=== PATIENT | male | born 1950 | race Caucasian/White ===

== ENCOUNTER 2019-06-30 10:25 | Emergency (ER) | payer OTHER, SELFPAY ==
[2019-06-30 10:26] VITALS: BP 135/106; PULSE 72
[2019-06-30 10:28] VITALS: BP 195/108; PULSE 72; RESP 16; TEMP 36.8; O2SAT 96; BMI 25.9
--- NOTE | 2019-06-30 10:45 | EKG12_ITS ---
Test Reason : Blood Pressure : / mmHG Vent. Rate : 066 BPM Atrial Rate : 066 BPM P-R Int : 132 ms QRS Dur : 082 ms QT Int : 420 ms P-R-T Axes : 036 -30 015 degrees QTc Int : 440 ms Normal sinus rhythm Left axis deviation Moderate voltage criteria for LVH, may be normal variant Abnormal ECG Confirmed by REJI SÁNCHEZ, AYESHA ([id number]), assistant editor ZEENAT MARIN ([id number]) on 07/01/2019 2:24:42 PM Referred By: Edwar Cornelius Confirmed By:AYESHA MENDOZA MD
--- NOTE | 2019-06-30 10:46 | ED.DCSUM_ITS ---
History of Present Illness Chief Complaint: Complaint Informant: Patient, - - Dr. Alvarez Onset: Month(s) Narrative: Patient presents with Dr. Alvarez's office for laboratory evaluation and further work-up. Patient was referred to Dr. Alvarez from an outside office with urinary retention and renal failure. Patient brought along lab work that had been obtained on May 17. At that time it revealed a creatinine of 8.39 and a BUN of 100. CEA is elevated at 11.3 and PSA is elevated at 12.5. He had a CT scan done at that time that reveals gross distention of the pelvicalyceal system and ureter bilaterally. There is very little renal cortical tissue bilaterally. The prostate is enlarged and impresses on the base of the bladder. In the office today a Oates catheter was placed and 2 L of urine were immediately drained. Past Medical History - Allergies and Home Meds Allergies/Adverse Reactions: Allergies sulfamethoxazole [From Bactrim] Allergy (Verified 06/30/19 10:38) Other abd pain and dizziness trimethoprim [From Bactrim] Allergy (Verified 06/30/19 10:38) Other abd pain and dizziness Primary Care Physician: Edwar Cornelius MD [Primary Care Provider] - Past Medical History: None Review of Systems General: Denies: Chills, Fever Eyes: Denies: Visual changes - bilaterally ENT: Denies: Bilateral ear pain Cardiovascular: Denies: Chest pain Respiratory: Denies: Dyspnea Gastrointestinal: Reports: Abdominal pain. Denies: Nausea, Vomiting, Diarrhea Musculoskeletal: Reports: Back pain Neurological: Denies: Headache, Weakness Hematologic: Denies: Easy bruising, Easy bleeding Allergy: Denies: Uticaria Physical Exam Vital Signs/Narrative: Vital Signs Temp Pulse Resp BP Pulse Ox 06/30/19 10:28 98.2 F 72 16 195/108 H 96 06/30/19 10:26 72 135/106 H Inital Vital Signs reviewed: Yes General: Well nourished, Well developed Head: Normocephalic ENT: Moist mucous membranes Neck: Supple Cardiovascular: Regular rate, Regular rhythm Respiratory: No distress, CTA bilaterally Abdomen: Soft, Nontender, Hypoactive bowel sounds Back: Negative for: CVA tenderness Skin: Normal color Neurological: Alert, Oriented x3 Psychological: Normal affect Diagnostic/Tx/Re-eval Laboratory Results 06/30/19 06/30/1920 10:55 10:55 11:26 WBC 5.3 RBC 3.96 L Hgb 11.1 L Hct 34.9 L MCV 88.1 MCH 28.0 MCHC 31.8 L RDW Std Deviation 42.9 RDW Coeff of Francesco 13.2 Plt Count 199 MPV 9.3 Immature Gran % (Auto) 0.400 Neut % (Auto) 64.1 Lymph % (Auto) 18.8 L [place] % (Auto) 9.7 Eos % (Auto) 6.4 H Baso % (Auto) 0.6 Absolute Neuts (auto) 3.4 Absolute Lymphs (auto) 0.99 Nucleated RBC % 0 Sodium 141 Potassium 3.6 Chloride 111 H Carbon Dioxide 21.0 Anion Gap 9 BUN 95 H Creatinine 9.23 H* Estim Creat Clear Calc 6.39 Est GFR (MDRD) Af Amer 7 L Est GFR (MDRD) Non-Af 6 L BUN/Creatinine Ratio 10.3 Glucose 87 Calcium 8.5 Urine Color Yellow Urine Clarity Cloudy Urine pH 6.5 Ur Specific [place] 1.010 Urine Protein 100 H Urine Glucose (UA) 50 H Urine Ketones Negative Urine Occult Blood 250 H Urine Nitrite Negative Urine Bilirubin Negative Urine Urobilinogen Normal Ur Leukocyte Esterase Negative Urine RBC 10-25 SEEN Urine WBC 0 SEEN Ur Squamous Epith Cells 0-5 SEEN Urine Bacteria 0 SEEN Urine Mucus 0 SEEN - EKG Initial EKG Interpretation: Sinus Rhythm - Sinus at 66 with no acute ischemia. - Medical Decision Making Test results are reviewed with Dr. Alona Read from nephrology. She states that as long as the patient does not have uremic symptoms currently he can be followed up as an outpatient. I will write an outpatient lab order for patient to have repeat labs drawn next Thursday. These are to be sent both to Dr. Read as well as Dr. Alvarez. Patient is to call Dr. Read's office for follow-up. Patient and family at bedside are in agreement. They were given return instructions. ED Disposition - Plan for ED Patient: Disposition: Home or Assisted Living Diagnosis: Renal failure Instructions: Chronic Renal Failure Referrals: Alona Read DO [STAFF PHYSICIAN] - As soon as possible Asher Alvarez MD [STAFF PHYSICIAN] -
--- NOTE | 2019-06-30 10:49 | NURSING ---
NO OLD EKG
[2019-06-30 10:59] LABS: Absolute Lymphocyte Count 0.99 X10^3/uL (0.83-4.51); Absolute Neutrophil Count 3.4 X10^3/uL (2.0-7.7); Basophil# 0.03 X10^3/uL; Basophil% 0.6 % (0-1); Eosinophil# 0.34 X10^3/uL; Eosinophils% 6.4 % (0-5); Hematocrit 34.9 % (40-54); Hemoglobin 11.1 g/dL (13.0-16.5); Lymphocyte # 0.99 X10^3/ul (4.0); Lymphocyte % 18.8 % (19-41); Mean Corp Hgb Conc 31.8 g/dL (32-36); Mean Corpuscular Volume 88.1 fL (80-94); Mean Platelet Vol. 9.3 fl (6.2-12.0); Monocyte# 0.51 X10^3/uL; Monocyte% 9.7 % (0-10); NRBC Flagged by Analyzer 0 % (0-5); Neutrophil # 3.39 X10^3/uL (2.7-7.7); Neutrophil % 64.1 % (47-70); Platelet Count 199 K/mm3 (150-450); RBC Distribution Width CV 13.2 % (11.6-14.6); RBC Distribution Width SD 42.9 fl (35.1-43.9); Red Blood Count 3.96 M/mm3 (4.6-6.2); White Blood Count 5.3 K/mm3 (4.4-11.0)
[2019-06-30 11:19] LABS: Anion Gap 9 (5-15); BUN 95 mg/dL (7-18); BUN/Creat Ratio 10.3 RATIO (10-20); Calcium,Total 8.5 mg/dL (8.5-10.1); Chloride 111 mmol/L (98-107); Creatinine, Serum 9.23 mg/dL (0.70-1.30); EST Glomerular Filtration Rate 6 mL/min (>60); Est Glom Filt Rate - Afr Amer 7 mL/min (>60); Estimated Creatinine Clearance 6.39 ml/min; Glucose 87 mg/dL (74-106); Potassium 3.6 mmol/L (3.5-5.1); Sodium Level 141 mmol/L (136-145)
[2019-06-30 11:30] LABS: Bacteria 0 SEEN /hpf (None Seen); Mucous, Urine 0 SEEN /hpf (<or=2+); White Blood Cells 0 SEEN /hpf (0-5)
[2019-06-30 11:34] VITALS: BP 195/103; PULSE 69; RESP 17; TEMP 36.8; O2SAT 97
[2019-06-30 11:50] LABS: Color, Urine Yellow (Yellow); Glucose, Dipstick 50 mg/dl (Normal); Ketone-Dipstick Negative (Negative); Leukocyte Esterase-Dipstick Negative /ul (Negative); Nitrite-Dipstick Negative (Negative); Occult Blood-Urine 250 /ul (Negative); Protein-Dipstick 100 mg/dl (Negative); Urine Bilirubin Dipstick Negative (Negative); Urine Clarity Cloudy (Clear); Urine Urobilinogen Normal (Normal); Urine pH 6.5 (5.0 - 8.0)
[2019-06-30 11:58] LABS: Red Blood Cells-Urine 10-25 SEEN /hpf (0-5); Squamous Epithelial Cells - UA 0-5 SEEN /hpf (0-5)
[2019-06-30 12:54] VITALS: BP 195/98; PULSE 68; RESP 17; O2SAT 97
== END 2019-06-30 12:57 | disposition home or self-care (01) ==
PROVIDERS: Emergency Provider Emergency Medicine; PCP Family Medicine; Referring Provider Family Medicine
DX: N19 Unspecified kidney failure (principal)
CPT/HCPCS: 80048; 81001; 85025; 93005; 99285; A4216

== ENCOUNTER → 2019-07-26 15:53 | Outpatient (CLI) | payer OTHER, SELFPAY ==
[2019-06-30 10:28] VITALS: BMI 25.9
== END ==
PROVIDERS: PCP Family Medicine; Referring Provider Urology; Visit Provider Urology
DX: N39.0 Urinary tract infection, site not specified (principal)
CPT/HCPCS: 87086; 87088

== ENCOUNTER → 2019-08-15 08:39 | Outpatient (CLI) | payer OTHER, SELFPAY ==
--- NOTE | 2019-08-15 08:43 | VDUE_ITS ---
Reason For Study: CKD Stage 5 Right Arm Left Arm Right Cephalic Vein at the wrist measures Left Cephalic Vein at the wrist measures 0.32 x 0.33 cm. 0.25 x 0.24 cm. Right Cephalic Vein in the forearm measures Left Cephalic Vein in the forearm measures 0.31 x 0.33 cm. 0.33 x 0.32 cm. Right Cephalic Vein below antecub measures Left Cephalic Vein below antecub measures 0.35 x 0.35 cm. 0.30 x 0.34 cm. Right Cephalic Vein above antecub measures Left Cephalic Vein above antecub measures 0.31 x 0.33 cm. 0.40 x 0.40 cm. Right Cephalic Vein mid bicep measures 0.33 Left Cephalic Vein at mid bicep measures x 0.33 cm. 0.36 x 0.40 cm. Right Cephalic Vein at the shoulder measures Left Cephalic Vein at the shoulder measures 0.31 x 0.34 cm. 0.45 x 0045 cm. Right Basilic Vein at the origin measures Basilic vein at origin measures 0.33 x 0.34 0.56 x 0.55 cm. cm. Right Basilic Vein mid bicep measures 0.53 x Basilic vein at bicep measures 0.35 x 0.36 0.53 cm. cm. Right Basilic Vein above antecub measures Basilic vein above antecub measures 0.25 x 0.51 x 0.53 cm. 0.23 cm. Right Brachial artery measures 0.54 x 0.56 Left Brachial artery measures 0.53 x 0.55 cm cm with a velocity of 65.6 cm/sec. with a velocity of 86.4 cm/sec. Rigth Radial artery measures 0.23 x 0.24 cm Left Radial artery measures 0.27 x 0.27 cm with a velocity of 76 cm/sec. with a velocity of 60.4 cm/sec. Interpretation Summary Patent and compressible bilateral upper extremity cephalic and basilic veins with dimensions as noted. Adequate bilateral radial and brachial artery diameter and flow. Ordering Physician: Alona Read Referring Physician: Edwar Cornelius Performed By: Ying East RVT ?
[2019-08-15 09:31] LABS: Albumin, Serum 3.2 g/dL (3.2-5.0); BUN 58 mg/dL (7-18); BUN/Creat Ratio 10.2 RATIO (10-20); Calcium,Total 8.4 mg/dL (8.5-10.1); Chloride 106 mmol/L (98-107); Creatinine, Serum 5.67 mg/dL (0.70-1.30); EST Glomerular Filtration Rate 11 mL/min (>60); Est Glom Filt Rate - Afr Amer 13 mL/min (>60); Glucose 88 mg/dL (74-106); Sodium Level 140 mmol/L (136-145)
== END ==
PROVIDERS: PCP Family Medicine; Referring Provider Internal Medicine Nephrology; Visit Provider Internal Medicine Nephrology
DX: Z01.818 Encounter for other preprocedural examination (principal); N18.5 Chronic kidney disease, stage 5; N13.8 Other obstructive and reflux uropathy; N25.81 Secondary hyperparathyroidism of renal origin; E55.9 Vitamin D deficiency, unspecified
CPT/HCPCS: 36415; 80069; 93970

== ENCOUNTER → 2022-12-18 | Outpatient (CLI) | payer OTHER, SELFPAY ==
--- NOTE | 2022-12-18 14:01 | VDUE_ITS ---
Reason For Study: Pre-Op Fistula Creation Right Arm Left Arm Right cephalic vein is compressible. Left cephalic vein is compressible. Right Cephalic Vein at the wrist measures Left Cephalic Vein at the wrist measures 0.33 0.32 x 0.35 cm. x 0.36 cm. Right Cephalic Vein in the forearm measures Left Cephalic Vein in the forearm measures 0.30 x 0.34 cm. 0.28 x 0.30 cm. Right Cephalic Vein below antecub measures Left Cephalic Vein below antecub measures 0.36 x 0.32 cm. 0.29 x 0.34 cm. Right Cephalic Vein above antecub measures Left Cephalic Vein above antecub measures 0.43 x 0.46 cm. 0.43 x 0.49 cm. Right Cephalic Vein mid bicep measures 0.34 x Left Cephalic Vein at mid bicep measures 0.37 0.35 cm. x 0.36 cm. Right Cephalic Vein at the shoulder measures Left Cephalic Vein at the shoulder measures 0.33 x 0.35 cm. 0.47 x 0.47 cm. Right basilic vein is compressible. Left basilic vein is compressible. Right Basilic Vein at the origin measures Basilic vein above antecub measures 0.32 x 0.45 x 0.49 cm. 0.33 cm. Right Basilic Vein mid bicep measures 0.46 x Basilic vein at bicep measures 0.35 x 0.35 0.50 cm. cm. Right Basilic Vein above antecub measures Basilic vein at origin measures 0.53 x 0.56 0.36 x 0.40 cm. cm. Right Brachial artery measures 0.59 x 0.58 cm Left Brachial artery measures 0.58 x 0.62 cm with a velocity of 68.9 cm/sec. with a velocity of 104.3 cm/sec. Rigth Radial artery measures 0.21 x 0.22 cm Left Radial artery measures 0.26 x 0.28 cm with a velocity of 64.1/6.5 cm/sec. with a velocity of 81.0 cm/sec. VL/Dialysis Vein Map PRE-OP BILAT Interpretation Summary Patent and compressible bilateral upper extremity cephalic and basilic veins wi th dimensions as noted Normal bilateral brachial artery and radial artery diameter and flow Ordering Physician: Black Boudreaux Referring Physician: Edwar Cornelius Performed By: Kyle Mayen RVT ???
== END | disposition home or self-care (01) ==
LOC: CVS 13:59
PROVIDERS: PCP Family Medicine; Referring Provider Surgery; Visit Provider Surgery
DX: Z01.818 Encounter for other preprocedural examination (principal); N18.9 Chronic kidney disease, unspecified
CPT/HCPCS: 93985

== ENCOUNTER 2023-01-20 08:50 | Day surgery (SDC) | payer SELFPAY, OTHER ==
--- NOTE | 2023-01-15 08:59 | EKG12_ITS ---
Test Reason : PRE OP Blood Pressure : / mmHG Vent. Rate : 075 BPM Atrial Rate : 075 BPM P-R Int : 130 ms QRS Dur : 074 ms QT Int : 376 ms P-R-T Axes : 054 009 047 degrees QTc Int : 419 ms Normal sinus rhythm Normal ECG Confirmed by JUANITA SÁNCHEZ, CARLOTA ([id number]), film editor RASHI DESAI ([id number]) on 01/19/2023 8:31:13 AM Referred By: Black Boudreaux Confirmed By:KRYSTIAN GRANT MD
[2023-01-20] VITALS (19 sets, daily range): BP systolic 116–181; BP diastolic 69–98; PULSE 50–75; RESP 12–18; TEMP 36–36.6; O2SAT 92–100; BMI 26.4
--- NOTE | 2023-01-20 09:22 | PCM.HP.BLA ---
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 Is patient in pain?: No Allergies sulfamethoxazole [From Bactrim] Allergy (Verified 12/25/22 15:03) Othertrimethoprim [From Bactrim] Allergy (Verified 12/25/22 15:03) Other Medications multivitamin,zs-marl-wmskjuoi 27 mg-0.4 mg tablet 1 tab PO DAILY 06/30/19 [History Confirmed 12/25/22] vit B apeqmpd-Z-KB-iron sulf-vit E 500 mg-400 mcg-27 mg iron tablet 1 ea PO DAILY 06/30/19 [History Confirmed 12/25/22] PFSH Medical History (Updated 12/25/22 @ 15:01 by Sangeeta Conway) BPH (benign prostatic hyperplasia) Surgical History (Updated 12/25/22 @ 15:01 by Sangeeta Conway) History of insertion of tunneled central venous catheter (CVC) with port Social History Smoking Status: Never smoker HPI HPI HPI: 72-year-old gentleman is referred by Dr Michelle Sosa for surgical consultation regarding creation of an arteriovenous analysis fistula and a written copy of my surgical consult recommendations will return to him. We initially tried to make contact with this gentleman October 06, 2022 but unfortunately multiple times were unable to obtain a return phone call. It is of note that dating all the way back to August 15, 2019 he had bilateral upper extremity vein mapping for an intended AV fistula. More recently on December 18, 2022 he had bilateral extremity vein mapping. This suggest that bilateral upper extremity cephalic veins throughout their course appear to be of adequate diameter. The patient presents today. He has right internal jugular tunneled dialysis catheter site has been placed. By report apparently 2019 he had suggested that he would never be placed on hemodialysis.Apparently more recently as his kidneys continued to fail he then realized that he required hemodialysis but unfortunately then had tunnel catheters placed. He is aware that we were trying to avoid the catheters being placed by addressing this precrisis level The patient is right arm dominant. December 18, 2022 Reason For Study: Pre-Op Fistula Creation Right Arm Left Arm Right cephalic vein is compressible. Left cephalic vein is compressible. Right Cephalic Vein at the wrist measures Left Cephalic Vein at the wrist measures 0.33 0.32 x 0.35 cm. x 0.36 cm. Right Cephalic Vein in the forearm measures Left Cephalic Vein in the forearm measures 0.30 x 0.34 cm. 0.28 x 0.30 cm. Right Cephalic Vein below antecub measures Left Cephalic Vein below antecub measures 0.36 x 0.32 cm. 0.29 x 0.34 cm. Right Cephalic Vein above antecub measures Left Cephalic Vein above antecub measures 0.43 x 0.46 cm. 0.43 x 0.49 cm. Right Cephalic Vein mid bicep measures 0.34 x Left Cephalic Vein at mid bicep measures 0.37 0.35 cm. x 0.36 cm. Right Cephalic Vein at the shoulder measures Left Cephalic Vein at the shoulder measures 0.33 x 0.35 cm. 0.47 x 0.47 cm. Right basilic vein is compressible. Left basilic vein is compressible. Right Basilic Vein at the origin measures Basilic vein above antecub measures 0.32 x 0.45 x 0.49 cm. 0.33 cm. Right Basilic Vein mid bicep measures 0.46 x Basilic vein at bicep measures 0.35 x 0.35 0.50 cm. cm. Right Basilic Vein above antecub measures Basilic vein at origin measures 0.53 x 0.56 0.36 x 0.40 cm. cm. Right Brachial artery measures 0.59 x 0.58 cm Left Brachial artery measures 0.58 x 0.62 cm with a velocity of 68.9 cm/sec. with a velocity of 104.3 cm/sec. Rigth Radial artery measures 0.21 x 0.22 cm Left Radial artery measures 0.26 x 0.28 cm with a velocity of 64.1/6.5 cm/sec. with a velocity of 81.0 cm/sec. VL/Dialysis Vein Map PRE-OP BILAT Interpretation Summary Patent and compressible bilateral upper extremity cephalic and basilic veins with dimensions as noted Normal bilateral brachial artery and radial artery diameter and flow Ordering Physician: Black Boudreaux Referring Physician: Edwar Cornelius Performed By: Kyle Mayen RVT General General: No weight change, appetite, fatigue, colon cancer, breast cancer or weakness HEENT HEENT: No difficulty swallowing, eye injury, eye surgery, swollen glands or hoarseness Endo Endocrine: Yes thyroid disease; No diabetes mellitus, thyroid cancer, Hair loss, heat intolerance or cold intolerance Musc Musculoskeletal: Yes arthritis; No back problems, rheumatoid arthritis, gout or joint pain Cardio Cardiovascular: No murmur, pacemaker, heart disease, atrial fibrillation, high blood pressure, heart attack, heart stent, palpitations, shortness of breat with exertion or chest pain Psych Psychiatric: No depression, anxiety or hearing voices Resp Respiratory: No shortness of breath, No sleep apnea, No cough, No COPD, No asthma, No emphysema and No wheezing Gastro Gastrointestinal: No abdominal pain, No nausea or vomiting, No diarrhea, No constipation, No blood in stool, No acid reflux, No hemorrhoids, No ulcers, No gallbladder problem and No black,tarry stools Robert Hematologic: No blood thinners, No blood disorders, No bleeding, No anemia and No blood clots Neuro Neurologic: No weakness Exam Const General: cooperative, healthy appearing, comfortable and no acute distress [facility] Head: normal to inspection Eyes General: appearance normal, both eyes and all related structures Neck Neck: normal visual inspection Chest Other: Right IJ tunneled dialysis catheter is in place Resp Effort & Inspection: normal respiratory effort Auscultation: clear to auscultation bilaterally Cardio Palpation: normal PMI Rate: regular rate GI Other: Soft, nontender Musc Cervical Spine: normal cervical lordosis Skin Other: Scattered areas of ecchymosis bilateral upper extremities Neuro General: patient alert, patient awake and patient oriented x3 Extrem Other: 3+ left radial and brachial pulses. The left forearm and upper arm cephalic vein are visible. I performed ultrasound inspection and find that the cephalic vein does indeed appear to be nicely patent throughout Psych Appearance: grossly normal Assessment and Plan Assessment and Plan (1) Chronic kidney disease: Status: Chronic Plan: The patient is right arm dominant. He already has started hemodialysis. He is aware that it would take at least 8 weeks of maturation to get a fistula usable. I propose for him a left forearm radiocephalic arteriovenous fistula. I have discussed the technique, benefit, risk, alternatives. No guarantees of success have been offered. He has had an opportunity to ask and have questions answered. We will schedule and proceed at his discretion. I appreciate the opportunity of assisting with surgical care. Copy: Dr. Edwar Cornelius and Dr Michelle Boudreaux M.D., F.A.C.S. We have been contacted from the patient's dialysis center notifying us that his current tunneled right IJ dialysis catheters are malfunctioning and they are requesting that those catheters be removed and that new ones to be placed at the same time of his planned fistula surgery. I discussed with the patient this additional surgical recommendation. He has had an opportunity to ask and have questions answered. We will add this to her surgical plans. Anticipate removal of the right internal jugular tunneled dialysis catheters and possible placement either in the left or the right internal jugular. Black Boudreaux M.D., F.A.C.S.
--- NOTE | 2023-01-20 09:24 | DCINST_ITS ---
Discharge Instructions Diet Discharge Diet: Renal Diet Activity Discharge Activity: May Not Drive (for 2-3 days or while taking narcotic pain medications.), May Shower and May Take a Tub Bath (in 5 days.) Lifting Restrictions: 5 pounds Keep extremity elevated above heart level: - (Keep arm elevated above the heart level for 3 days.) Dressing / Incision Call your doctor if your incision/area has: Continuous Slow Oozing, Sudden Increased Bleeding (apply pressure and call your doctor.), Increased Pain/ Swelling, Increased Redness and Foul Smelling Discharge Call your doctor if you observe: Fever of 101 or Higher Suture Line Care: Avoid Pulling/Pushing and Avoid Pinching/Bending Cleanse incision/area with: Keep Dressing Clean & Dry Additional Dressing/Incision Instructions:: Change or remove dressing in one day. May protect with a gauze bandaid. Follow Up Care Please Follow Up With: Black Boudreaux MD When: Call [phone] to make an appointment for suture removal and follow up in 1 week. Test Results: Test results from this visit will be discussed in further detail at your follow- up appointment, if applicable. Discharge Plan Admission Attending Provider: Black Boudreaux Primary Care Provider: Cecy Pruitt Discharge Orders/Prescriptions Prescriptions: No Action multivitamin,bh-xybw-fbsmdtda 1 TABLET tablet 1 tab PO DAILY vit B vkgw-Y-VX-iron sulf-Alexa 1 EACH tablet 1 ea PO DAILY Other Ambulatory Orders: 12 Lead EKG (Routine) Timeframe: 20230115 Location: None Selected Ordered By: Dr. Black Boudreaux Referrals / Follow Up: Edwar Cornelius MD [Non-Staff] - Disposition Disposition (needs filled in before D/C Order can be placed): Home, Self Care
[2023-01-20 09:41] LABS: Hematocrit 35.1 % (40-54); Mean Corp Hgb Conc 31.3 g/dL (32-36); Mean Corpuscular Hgb 29.3 pg (27.0-32.0); Mean Corpuscular Volume 93.4 fL (80-94); Mean Platelet Vol. 9.5 fl (6.2-12.0); Platelet Count 161 K/mm3 (150-450); RBC Distribution Width CV 14.2 % (11.6-14.6); RBC Distribution Width SD 48.2 fl (35.1-43.9); Red Blood Count 3.76 M/mm3 (4.6-6.2); White Blood Count 6.4 K/mm3 (4.4-11.0)
[2023-01-20 10:14] LABS: Anion Gap 11 (5-15); BUN 76 mg/dL (7-18); BUN/Creat Ratio 7.8 RATIO (10-20); Calcium,Total 8.1 mg/dL (8.5-10.1); Chloride 113 mmol/L (98-107); Creatinine, Serum 9.79 mg/dL (0.70-1.30); EST Glomerular Filtration Rate 6 mL/min (>60); Est Glom Filt Rate - Afr Amer 7 mL/min (>60); Estimated Creatinine Clearance 5.54 ml/min; Glucose 75 mg/dL (74-106); Potassium 4.6 mmol/L (3.5-5.1); Sodium Level 142 mmol/L (136-145)
[2023-01-20] MEDS: Heparin Injection (Vial) 5,000 UNIT/ML VIAL 5000 UNIT (10:42)
[2023-01-20] MEDS: Heparin 10,000 UNITS/10 ML Vial 10000 UNITS (10:42)
[2023-01-20] MEDS: Lidocaine 1% (20 ml mdv) 20 ML Vial (10:42)
[2023-01-20] MEDS: Bupivacaine Mpf 0.5% 30 ML VIAL (10:42)
--- NOTE | 2023-01-20 12:06 | OP.PCM_ITS ---
Report of Operation Date of Procedure: 01/20/23 Pre-Operative Diagnosis: Problem with right internal jugular tunneled dialysis catheters with thrombosis. Need for new arteriovenous hemodialysis access in the form of that a fistula Post-Operative Diagnosis: Same Surgery/Procedure Performed:: Left forearm radiocephalic arteriovenous hemodialysis fistula creation Left internal jugular tunneled 23 cm precurved palindrome catheters: Reference [id number], lot [id number], Removal right internal jugular tunneled dialysis catheters Description of Surgical Findings:: Timeout and informed consent was obtained. 72-year-old gentleman was taken to the operating placed on the table underwent monitored anesthesia care. The left extremity sterilely prepped and draped. Ultrasound was used to map the course of the left forearm cephalic vein and approximately third of the way from the wrist at a branch point I selected to create the fistula. 1% lidocaine mixed 50-50 with 0.5% Marcaine was used as a local anesthetic. Throughout the entire operation a total of 26 cc was used. Local was instilled an oblique incision was created sharp blunt dissection was used to identify the cephalic vein it was identified at a branch point. Then sharp and blunt dissection used to identify the radial artery which was quite supple and could be mobilized for distance. Side branches were secured with hemoclips. After adequate circulation time of 7000 units of heparin the vein was secured distally with 2 hemoclips. This was at a branch point I spatulated that and then I placed peripheral vascular clamps on the radial artery and 11 blade was used to make an arteriotomy which was extended with York scissors. The end of side venous to return anastomosis created with a running 7-0 Prolene. The branch point allowed for very generous anastomosis. Nice positional lie was achieved. There was excellent flow initially in the fistula. Hemostasis was intact. That wound was closed with a deep layer of interrupted 3-0 Vicryl and then a running subicular 4 Monocryl. Steri-Strips Telfa tape dressings applied. Attention was drawn to the left neck which was sterilely prepped and draped. At this point the patient received 2 g of Ancef intravenously. Under ultrasound guidance 1% lidocaine mixed 50-50 50-50 with 0.5% Marcaine was instilled as local anesthetic. Then a micropuncture needle was inserted micropuncture wire inserted I exchanged out with a sheath dilator for an 035 J-wire. Local instilled down upon the left chest wall a 23 cm precurved palindrome catheter was tunneled from the chest to the neck serial dilatation was performed and the sheath dilator was inserted the catheter was advanced through the sheath the sheath was split the catheter was positioned at the SVC atrial junction it aspirated easily it was flushed with 2 cc heparinized saline for channel. The neck site was closed interrupted 5-0 Vicryl subdermal stitch Steri-Strip Telfa OpSite dressing. The catheter was secured to the neck with interrupted 3-0 n ylon. Finally attention was drawn to the catheters of the right chest. Local was instilled and incision was made at the catheter exit site the cath was identified it was dissected free the catheter was removed and direct pressure was held for hemostasis. Sterile dry dressings applied. The patient was taken to the recovery room in satisfied condition without apparent complication. Stat portable chest x-ray is pending. Specimens none. Drains none. Blood loss minimal. Black Boudreaux M.D., F.A.C.S. Surgeon: Black Boudreaux Type of Anesthesia: Local MAC Anesthesiologist: Freddy eBnavides
--- NOTE | 2023-01-20 12:27 | RAD_ITS ---
STUDY: X-RAY CHEST REASON FOR EXAM: Male, 72 years old. Line TECHNIQUE: Single AP portable view of the chest. COMPARISON: None. FINDINGS: A left-sided dialysis catheter has been placed. The tip is at the junction of the superior vena cava and right atrium. The lungs are clear and expanded. There is no demonstrated pleural abnormality. Normal size heart. Normal mediastinum and minal. Normal visualized pulmonary arteries. There is atherosclerotic tortuosity of the aortic arch and descending thoracic aorta. There are degenerative changes of the visualized thoracic spine. Normal visualized ribs, clavicles, and shoulders. There is no demonstrated abnormality of the visualized soft tissue structures of the upper abdomen. RAD/CXR for Line Placement IMPRESSION: The tip of the left dialysis catheter is at the junction of the superior vena cava and right atrium. Electronically Signed: Gamal Pires MD at 13:16 EDT ,
--- NOTE | 2023-01-20 13:15 | SUR.PHASEI ---
THIS NURSE HAS HELD PRESSURE FOR 30 MINUTES SO FAR. AARTI AVINA IS COMING OVER TO EVALUATE SITUATION.
--- NOTE | 2023-01-20 13:45 | SUR.PHASEI ---
AARTI GAVE ME ANOTHER BUNCH OF GAUZE AND ASKED THAT I CONTINUE TO HOLD PRESSURE TO UPPER RIGHT DRESSING. LEFT OPSITE CHEST DRESSING IS STILL BLEEDING I MARKED THE SITE WITH CURRENT BLEEDING.
--- NOTE | 2023-01-20 14:13 | SUR.PHASEI ---
AARTI HERE AFTER SPEAKING TO DR. VAZQUEZ. DRESSING REMOVED TO UPPER RIGHT AND UPPER LEFT. NEW OPSITE APPLIED TO UPPER LEFT. DRESSING REMOVED TO UPPER RIGHT AND A STEADY OOSE NOTED. SHE APPLIED ANOTHER DRESSING VIA STERILE TECHNIQUE AND APPLIED PRESURE WHILE PINCHING PER DR. VAZQUEZ REQUEST.
--- NOTE | 2023-01-20 14:15 | SUR.PHASEI ---
MAURICE AVINA IS CURRENTLY AT THE BEDSIDE HOLD PRESSURE FOR THE LAST 15 MINUTES.
[2023-01-20] MEDS: Protamine Sulfate 50 MG/5 ML Vial 20 MG IV (15:13)
== END 2023-01-20 16:18 | disposition home or self-care (01) ==
LOC: SDC 08:54 → AC 08:54
PROVIDERS: PCP Family Medicine; Referring Provider Surgery; Visit Provider Surgery
PROC: (CPT 36821; principal; 2023-01-20 10:45)
DX: T82.868A Thrombosis due to vascular prosthetic devices, implants and grafts, initial encounter (principal); I82.C11 Acute embolism and thrombosis of right internal jugular vein; N18.9 Chronic kidney disease, unspecified; X58.XXXA Exposure to other specified factors, initial encounter
CPT/HCPCS: 36821; 01844; 71045; 77001; 80048; 85027; 93005; A4648; J7040; J7120; J2405

== ENCOUNTER → 2023-11-26 | Outpatient (CLI) | payer OTHER, SELFPAY ==
--- NOTE | 2023-11-26 08:59 | AVDS_ITS ---
Reason For Study: CKD LEFT Inflow, 229.9/129.7 cm/sec. Inflow, 771.8 ml/min. Prox anastomosis, 493.3/269.2 cm/sec. Prox anastomosis, 931.4 ml/min. Prox graft, 472.8/258.1 cm/sec. Prox graft, 2299 ml/min. Mid, graft, 230.6/119.1 cm/sec. Mid graft, 1855 ml/min. Distal graft, 110.8/52.3 cm/sec. Distal graft, 1036 ml/min. Outflow, 62.3/38.1 cm/sec. Outflow, 592.7 ml/min. Preliminary report given to Meaghan AMOS. VL/AV Fistula/Dialysis Graft Scan Interpretation Summary Patent left radio-cephalic fistula with normal velocities and adequate flow vol umes. Branch visualized in mid fistula. Ordering Physician: Sia Nieves Referring Physician: Cecy Pruitt Performed By: Ying East RVT
== END | disposition home or self-care (01) ==
PROVIDERS: PCP Family Medicine; Visit Provider Physician Assistant
DX: N18.5 Chronic kidney disease, stage 5 (principal); I77.0 Arteriovenous fistula, acquired
CPT/HCPCS: 93990